=== PATIENT | male | born 1955 | race Caucasian/White ===

== ENCOUNTER 2018-06-25 10:48 | Emergency (ER) | payer OTHER ==
[~2018-06-25] VITALS: Ht 180.3 cm; Wt 88.5 kg
[2018-06-25 10:50] VITALS: BP_SYST 153
--- NOTE | 2018-06-25 11:02 | NUR ---
LANCE Alan at bedside examining patient.
--- NOTE | 2018-06-25 11:05 | NUR ---
Patient is awake, alert, and oriented x 4. Patient denies any pain or discomfort. No signs or symptoms of distress. Daughter at bedside.
[2018-06-25 11:42] LABS: ANION GAP 11 (5-15); CALCIUM 9.2 mg/dL (8.4-11.0); CHLORIDE 101 mmol/L (98-107); CREATININE 0.86 mg/dL (0.55-1.30); GLUCOSE 117 mg/dL (70-99); SODIUM SERUM 136 mmol/L (136-145); UREA NITROGEN, BLOOD 14 mg/dL (8-21)
[2018-06-25 11:50] LABS: ALANINE AMINOTRANSFERASE 29 U/L (12-78); ALBUMIN 3.5 g/dL (3.4-4.8); ASPARTATE AMINOTRANSFERASE 19 U/L (10-37); TOTAL BILIRUBIN 0.2 mg/dL (0.0-1.0)
[2018-06-25 11:54] LABS: GFR AFRICAN AMERICAN 116 mL/min (>90)
[2018-06-25 12:10] LABS: INR 0.9 (0.80-1.20); PROTHROMBIN TIME 9.4 SECS (9.5-12.5)
[2018-06-25 12:25] LABS: BILIRUBIN,URINE NEGATIVE (NEGATIVE); BLOOD, URINE NEGATIVE (NEGATIVE); CLARITY/URINE CLEAR (CLEAR); COLOR,URINE YELLOW (YELLOW); GLUCOSE,URINE NEGATIVE (NEGATIVE); KETONES,URINE NEGATIVE (NEGATIVE); LEUKOCYTE ESTERASE ,URINE NEGATIVE (NEGATIVE); NITRITE, URINE NEGATIVE (NEGATIVE); PH,URINE 6.5 (5.0-8.0); PROTEIN URINE NEGATIVE (NEGATIVE); UROBILINOGEN,URINE 0.2 (0.2-1.0)
--- NOTE | 2018-06-25 12:30 | NUR ---
Pt resting, pt denies dizziness or feeling faint.
[2018-06-25 12:38] LABS: BARBITURATE, URINE NEGATIVE (NEG <=200); BENZODIAZEPINE, URINE NEGATIVE (NEG <=150); CANNABINOID, URINE NEGATIVE (NEG <=50); COCAINE, URINE NEGATIVE (NEG <=150); METHAMPHETAMINES SCREEN,URINE NEGATIVE (NEG <=500); OPIATE, URINE NEGATIVE (NEG <=100); PHENCYCLIDINE SCREEN,URINE NEGATIVE (NEG <=25); UR TRICYCLIC ANTIDEPRESSANTS NEGATIVE (NEG <=300); URINE AMPHETAMINE NEGATIVE (NEG <=500); URINE METHADONE NEGATIVE (NEG <=200); URINE OXYCODONE SCREEN NEGATIVE (NEG <=100); URINE PROPOXYPHENE SCREEN NEGATIVE (NEG <=300)
[2018-06-25 12:39] LABS: HEMATOCRIT 35.1 % (36-54); HEMOGLOBIN 11.2 g/dL (14.0-18.0); MEAN CORPUSCULAR HEMOGLOBIN 25 pg (27-31); MEAN CORPUSCULAR HGB CONC 32 % (32-36); MEAN CORPUSCULAR VOLUME 80 fL (79.0-98.0); PLATELET COUNT (AUTO) 372 K/uL (130-430); RED BLOOD CELL COUNT(AUTO) 4.42 MIL/uL (4.2-6.2); RED CELL DISTRIBUTION WIDTH 17.5 % (9.0-15.0); WHITE BLOOD COUNT (AUTO) 9.1 K/uL (4.8-10.8)
[2018-06-25 12:40] LABS: BASOPHILS # (AUTO) 0.1 K/uL (0.0-0.2); BASOPHILS % (AUTO) 0.6 % (0.0-2.0); EOSINOPHILS # (AUTO) 0.1 K/uL (0.0-0.4); EOSINOPHILS % (AUTO) 1.5 % (0.0-4.0); LYMPHOCYTES # (AUTO) 0.6 K/uL (1.0-5.5); LYMPHOCYTES % (AUTO) 6.3 % (20.5-51.5); MONOCYTES # (AUTO) 0.7 K/uL (0.0-1.0); MONOCYTES % (AUTO) 7.8 % (1.7-9.3); NEUTROPHILS # (AUTO) 7.6 K/uL (1.8-7.7); NEUTROPHILS % (AUTO) 83.8 % (40.0-70.0)
[2018-06-25 13:38] VITALS: BP_SYST 146
--- NOTE | 2018-06-25 13:40 | NUR ---
Patient given written and verbal discharge instructions and verbalizes understanding. ER MD discussed with patient the results and treatment provided. Patient in stable condition. ID arm band removed. IV catheter removed intact and dressing applied, no active bleeding. No Rx given. Patient educated on pain management and to follow up with PMD. Pain Scale 0/10 . Opportunity for questions provided and answered. Medication side effect fact sheet provided.
== END 2018-06-25 13:38 | disposition home or self-care (01) ==
LOC: SED 10:48
DX: R55 Syncope and collapse (principal); D64.9 Anemia, unspecified; I10 Essential (primary) hypertension; F17.210 Nicotine dependence, cigarettes, uncomplicated
CPT/HCPCS: 36415; 70450-TC; 71045; 80053; 80307; 81003; 84484; 85025; 85610-TC; 93005; 99284

== ENCOUNTER 2018-11-20 17:12 | Inpatient (IN) | payer OTHER ==
[~2018-11-20] VITALS: Ht 177.8 cm; Wt 87.7 kg
[2018-11-20 17:20] VITALS: BP_SYST 140
[2018-11-20] MEDS ORDERED: NACL 0.9% 1,000 ML IV ONE (17:24)
[2018-11-20] MEDS ORDERED: METOPROLOL TARTRATE 5 MG/5 ML VIAL IVP ONE (17:30)
[2018-11-20] MEDS ORDERED: NITROGLYCERIN 0.4 MG TAB.SUBL SL ONE ×2 (17:30→17:31)
[2018-11-20] MEDS ORDERED: ASPIRIN 81 MG TAB.CHEW PO ONE (17:30)
[2018-11-20] MEDS ORDERED: MORPHINE 2 MG/ML INJ. SYRINGE IVP ONE (17:30)
[2018-11-20] MEDS ORDERED: ASPIRIN 325 MG TABLET ONE (17:31)
[2018-11-20 17:35] LABS: MEAN CORPUSCULAR HEMOGLOBIN 18 pg (27-31); MEAN CORPUSCULAR HGB CONC 30 % (32-36); MEAN CORPUSCULAR VOLUME 62 fL (79.0-98.0); PLATELET COUNT (AUTO) 407 K/uL (130-430); RED BLOOD CELL COUNT(AUTO) 2.89 MIL/uL (4.2-6.2); RED CELL DISTRIBUTION WIDTH 20.2 % (9.0-15.0); WHITE BLOOD COUNT (AUTO) 8.6 K/uL (4.8-10.8)
[2018-11-20 17:42] LABS: CALCIUM 8.1 mg/dL (8.4-11.0); CREATININE 0.77 mg/dL (0.55-1.30); POTASSIUM 4.2 mmol/L (3.5-5.1)
[2018-11-20 17:46] LABS: HEMOGLOBIN 5.3 g/dL (14.0-18.0)
[2018-11-20 17:51] LABS: ALBUMIN 3.3 g/dL (3.4-4.8); TOTAL BILIRUBIN 0.3 mg/dL (0.0-1.0)
[2018-11-20 17:55] LABS: BAND % (MANUAL) 0 % (0-6); BASOPHILS % (MANUAL) 0 % (0-2); EOSINOPHILS % (MANUAL) 4 % (0-7); LYMPHOCYTES % (MANUAL) 25 % (20-46); MONOCYTES % (MANUAL) 5 % (0-11)
[2018-11-20] MEDS ORDERED: IOHEXOL 100 ML IV ONE (18:20)
[2018-11-20 18:32] LABS: PROTHROMBIN TIME 10.3 SECS (9.5-12.5)
[2018-11-20 19:16] VITALS: BP_SYST 137
[2018-11-20] MEDS ORDERED: LIP40 PO (19:23)
[2018-11-20] MEDS ORDERED: CLOP300T2 PO (19:23)
[2018-11-20] MEDS ORDERED: LISI1TAB9 PO (19:23)
[2018-11-20] MEDS ORDERED: AMLO5TAB4 PO (19:23)
[2018-11-20] MEDS ORDERED: NITROGLYCERIN 0.4 MG TAB.SUBL SL PRN (19:45)
[2018-11-20 20:00] VITALS: BP_SYST 133
[2018-11-20 21:00] VITALS: BP_SYST 130
[2018-11-20] MEDS: ATORVASTATIN 20 MG TABLET PO SCH (21:23)
[2018-11-20 22:00] VITALS: BP_SYST 129
[2018-11-20 23:00] VITALS: BP_SYST 163
[2018-11-21] VITALS (26 sets, daily range): BP systolic 103–162
[2018-11-21] MEDS ORDERED: FUROSEMIDE 40 MG/4 ML VIAL IVP ONE (01:45)
[2018-11-21] MEDS ORDERED: LevALBUTEROL HCL 1.25 MG/0.5 ML *CONC.* VIAL.NEB (XOPENEX CONC.) INH PRN ×2 (02:00)
[2018-11-21] MEDS ORDERED: LevALBUTEROL HCL 1.25 MG/0.5 ML *CONC.* VIAL.NEB (XOPENEX CONC.) INH ONE (02:01)
[2018-11-21] MEDS ORDERED: FUROSEMIDE 40 MG/4 ML VIAL ONE (02:08)
[2018-11-21 03:48] LABS: HEMOGLOBIN 6.5 g/dL (14.0-18.0)
[2018-11-21 06:53] LABS: CREATININE 0.86 mg/dL (0.55-1.30)
[2018-11-21 06:59] LABS: TOTAL IRON BIND. CAPACITY 430 ug/dL (250-450)
[2018-11-21 07:06] LABS: HEMATOCRIT 23.4 % (36-54); MEAN CORPUSCULAR HEMOGLOBIN 20 pg (27-31); MEAN CORPUSCULAR HGB CONC 29 % (32-36); MEAN CORPUSCULAR VOLUME 70 fL (79.0-98.0); PLATELET COUNT (AUTO) 351 K/uL (130-430); RED BLOOD CELL COUNT(AUTO) 3.34 MIL/uL (4.2-6.2); RED CELL DISTRIBUTION WIDTH 24.8 % (9.0-15.0)
[2018-11-21] MEDS: LISINOPRIL 10 MG TABLET (PRINIVIL) PO SCH (08:09)
[2018-11-21] MEDS: amLODIPine BESYLATE 5 MG TABLET PO SCH (08:10)
[2018-11-21] MEDS: HYDROCHLOROTHIAZIDE 12.5 MG CAPSULE (HCTZ) PO SCH (08:10)
[2018-11-21 08:21] LABS: HEMOGLOBIN 6.8 g/dL (14.0-18.0)
[2018-11-21 08:22] LABS: WHITE BLOOD COUNT (AUTO) 22.9 K/uL (4.8-10.8)
[2018-11-21] MEDS ORDERED: NACL 0.9% 1,000 ML IV SCH (09:30)
[2018-11-21] MEDS ORDERED: PANTOPRAZOLE SODIUM 40 MG/VIAL (PROTONIX) IVP SCH (09:45)
[2018-11-21] MEDS ORDERED: PANTOPRAZOLE SODIUM 40 MG/VIAL (PROTONIX) IVP ONE (09:45)
[2018-11-21] MEDS ORDERED: methylPREDNISolone SOD SUCC 40 MG/ML VIAL IVP ONE (10:00)
[2018-11-21] MEDS ORDERED: FUROSEMIDE 20 MG/2 ML VIAL IVP ONE ×2 (10:45→12:00)
[2018-11-21] MEDS ORDERED: DIPHENHYDRAMINE INJ 50 MG/ML VIAL IVP ONE (10:45)
[2018-11-21] MEDS: LevALBUTEROL HCL 1.25 MG/0.5 ML *CONC.* VIAL.NEB (XOPENEX CONC.) INH SCH ×4 (11:03→23:42)
[2018-11-21] MEDS: NICOTINE 2 MG PO PRN ×3 (12:57→20:57)
[2018-11-21 13:15] LABS: ATYPICAL LYMPHOCYTES % 0 % (0-0); BAND % (MANUAL) 3 % (0-6); BASOPHILS % (MANUAL) 0 % (0-2); EOSINOPHILS % (MANUAL) 0 % (0-7); LYMPHOCYTES % (MANUAL) 3 % (20-46); MONOCYTES % (MANUAL) 6 % (0-11)
[2018-11-21] MEDS ORDERED: DIPHENHYDRAMINE INJ 50 MG/ML VIAL ONE (14:45)
[2018-11-21] MEDS: methylPREDNISolone SOD SUCC 40 MG/ML VIAL IVP SCH ×2 (14:48→23:17)
[2018-11-21] MEDS: AZITHROMYCIN 500 MG in NS 250 ML IV SCH (17:25)
[2018-11-21] MEDS: FUROSEMIDE 20 MG/2 ML VIAL IVP SCH (17:31)
[2018-11-21 20:06] LABS: BASOPHILS # (AUTO) 0.2 K/uL (0.0-0.2); BASOPHILS % (AUTO) 1.3 % (0.0-2.0); HEMATOCRIT 26.4 % (36-54); HEMOGLOBIN 8.1 g/dL (14.0-18.0); LYMPHOCYTES # (AUTO) 0.3 K/uL (1.0-5.5); LYMPHOCYTES % (AUTO) 2.3 % (20.5-51.5); MEAN CORPUSCULAR HEMOGLOBIN 22 pg (27-31); MEAN CORPUSCULAR HGB CONC 31 % (32-36); MEAN CORPUSCULAR VOLUME 71 fL (79.0-98.0); MONOCYTES # (AUTO) 0.2 K/uL (0.0-1.0); MONOCYTES % (AUTO) 1.8 % (1.7-9.3); NEUTROPHILS # (AUTO) 12.7 K/uL (1.8-7.7); NEUTROPHILS % (AUTO) 94.6 % (40.0-70.0); PLATELET COUNT (AUTO) 315 K/uL (130-430); RED CELL DISTRIBUTION WIDTH 27.1 % (9.0-15.0); WHITE BLOOD COUNT (AUTO) 13.5 K/uL (4.8-10.8)
[2018-11-21 20:47] LABS: ERYTHROCYTE SEDIMENTATION RATE 14 MM/HR (0-15)
[2018-11-21] MEDS: ATORVASTATIN 20 MG TABLET PO SCH (20:53)
[2018-11-21] MEDS: PANTOPRAZOLE SODIUM 40 MG/VIAL (PROTONIX) IVP SCH (20:53)
[2018-11-21] MEDS: CARVEDILOL 6.25 MG TABLET (COREG) PO SCH (20:54)
[2018-11-21] MEDS ORDERED: methylPREDNISolone SOD SUCC 40 MG/ML VIAL IVP SCH (21:00)
[2018-11-22] VITALS (20 sets, daily range): BP systolic 96–162
[2018-11-22] MEDS: LevALBUTEROL HCL 1.25 MG/0.5 ML *CONC.* VIAL.NEB (XOPENEX CONC.) INH SCH ×4 (03:50→15:15)
[2018-11-22 05:03] LABS: BASOPHILS # (AUTO) 0.1 K/uL (0.0-0.2); BASOPHILS % (AUTO) 0.4 % (0.0-2.0); HEMATOCRIT 26.9 % (36-54); HEMOGLOBIN 8.2 g/dL (14.0-18.0); LYMPHOCYTES # (AUTO) 0.3 K/uL (1.0-5.5); LYMPHOCYTES % (AUTO) 1.7 % (20.5-51.5); MEAN CORPUSCULAR HEMOGLOBIN 22 pg (27-31); MEAN CORPUSCULAR HGB CONC 30 % (32-36); MEAN CORPUSCULAR VOLUME 72 fL (79.0-98.0); MONOCYTES # (AUTO) 0.4 K/uL (0.0-1.0); MONOCYTES % (AUTO) 2.3 % (1.7-9.3); NEUTROPHILS # (AUTO) 14.7 K/uL (1.8-7.7); NEUTROPHILS % (AUTO) 95.6 % (40.0-70.0); PLATELET COUNT (AUTO) 300 K/uL (130-430); RED BLOOD CELL COUNT(AUTO) 3.75 MIL/uL (4.2-6.2); RED CELL DISTRIBUTION WIDTH 27.6 % (9.0-15.0); WHITE BLOOD COUNT (AUTO) 15.4 K/uL (4.8-10.8)
[2018-11-22 05:56] LABS: CALCIUM 8.4 mg/dL (8.4-11.0); CREATININE 0.93 mg/dL (0.55-1.30); POTASSIUM 3.4 mmol/L (3.5-5.1)
[2018-11-22 05:57] LABS: ALBUMIN 2.9 g/dL (3.4-4.8); TOTAL BILIRUBIN 0.5 mg/dL (0.0-1.0)
[2018-11-22 05:58] LABS: THYROID STIMULATING HORMONE 0.22 uIu/mL (0.34-4.82)
[2018-11-22] MEDS: methylPREDNISolone SOD SUCC 40 MG/ML VIAL IVP SCH (06:26)
[2018-11-22] MEDS: FUROSEMIDE 20 MG/2 ML VIAL IVP SCH ×2 (06:27→18:15)
[2018-11-22] MEDS: NICOTINE 2 MG PO PRN ×3 (06:28→15:32)
[2018-11-22] MEDS: PANTOPRAZOLE SODIUM 40 MG/VIAL (PROTONIX) IVP SCH (08:56)
[2018-11-22] MEDS: LISINOPRIL 10 MG TABLET (PRINIVIL) PO SCH (08:56)
[2018-11-22] MEDS: CARVEDILOL 6.25 MG TABLET (COREG) PO SCH (08:57)
[2018-11-22] MEDS: amLODIPine BESYLATE 5 MG TABLET PO SCH (08:58)
[2018-11-22] MEDS: HYDROCHLOROTHIAZIDE 12.5 MG CAPSULE (HCTZ) PO SCH (08:58)
[2018-11-22] MEDS ORDERED: NICOTINE 7 MG/24 HR PATCH.TD24 TD SCH (09:00)
[2018-11-22] MEDS ORDERED: POTASSIUM CHLORIDE 20 MEQ TAB.PRT.SR PO ONE (10:00)
[2018-11-22] MEDS: AZITHROMYCIN 500 MG in NS 250 ML IV SCH (17:39)
[2018-11-22] MEDS ORDERED: methylPREDNISolone SOD SUCC 40 MG/ML VIAL IVP SCH (21:00)
[2018-11-24 03:15] LABS: FOLATE (FOLIC ACID) 12.5 ng/mL (>3.0)
[2018-11-24 20:21] LABS: MYCOPLASMA PNEUMONIAE IgM <770 U/mL (0-769)
[2018-11-26 12:00] LABS: CHLAMYDIA AB, IgG 1.96 ratio (0.00-0.90)
== END 2018-11-22 20:00 | disposition short-term general hospital (02) | DRG 377 ==
LOC: SED 17:12 → SIC 18:34 → STU 11-22 18:02
PROVIDERS: ADMIT Family Medicine; ATTEND Family Medicine
PROC: 30233N1 Transfusion of Nonautologous Red Blood Cells into Peripheral Vein, Percutaneous Approach (ICD-10-PCS; principal; 2018-11-20)
PROC: 5A09357 Assistance with Respiratory Ventilation, Less than 24 Consecutive Hours, Continuous Positive Airway Pressure (ICD-10-PCS; 2018-11-21)
DX: K92.2 Gastrointestinal hemorrhage, unspecified (principal); J18.9 Pneumonia, unspecified organism; I24.8 Other forms of acute ischemic heart disease; E87.1 Hypo-osmolality and hyponatremia; I25.110 Atherosclerotic heart disease of native coronary artery with unstable angina pectoris; I42.0 Dilated cardiomyopathy; D50.9 Iron deficiency anemia, unspecified; E78.5 Hyperlipidemia, unspecified; I11.0 Hypertensive heart disease with heart failure; I73.9 Peripheral vascular disease, unspecified; I50.9 Heart failure, unspecified; J44.9 Chronic obstructive pulmonary disease, unspecified; I65.29 Occlusion and stenosis of unspecified carotid artery; F17.210 Nicotine dependence, cigarettes, uncomplicated; Z79.82 Long term (current) use of aspirin; Z86.73 Personal history of transient ischemic attack (TIA), and cerebral infarction without residual deficits; Z79.899 Other long term (current) drug therapy; Z82.49 Family history of ischemic heart disease and other diseases of the circulatory system
CPT/HCPCS: 36415; 36600; 71045; 71260-TC; 80048; 80053; 80061; 82272; 82550-TC; 82607; 82728; 82746; 82803-TC; 83540-TC; 83550-TC; 83880; 84443-TC; 84484; 85007; 85018-TC; 85025; 85027; 85610-TC; 85651-TC; 85730-TC; 86631; 86738; 86886; 86900; 86901; 86920; 87040-TC; 87081; 93005; 93306; 94640; 94660; 96361; 96374; 96375; 99291; C9113; J0456; J0696; J1030; J1200; J1940; J2270; J3490; J7030; J7040; J7050; J7060; J7612; P9021; Q9967

== ENCOUNTER 2022-09-05 15:16 | Emergency (ER) | payer OTHER ==
[~2022-09-05] VITALS: Ht 180.3 cm; Wt 95.3 kg
[~2022-09-05 15:16] MED LIST: AMLO5TAB4 PO; CLOP300T2 PO; LIP40 PO; LISI1TAB53 PO
--- NOTE | 2022-09-05 15:20 | NUR ---
PT BIBA AWAKE AND ALERT AOX4, NO SOB NO DISTRESS. PT WAS AT HOME AND HAD 3 SEIZURE EACH LASTING ONE MIN. PT WAS SITTING IN A CHAIR AND NO TRAUMA OCCURED. PT DENIES PAIN. PT HAS NO PREVIOUS HX OF SEIZURE. PT HAS HX OF TIA, HTN.
--- NOTE | 2022-09-05 15:24 | NUR ---
MD DR CISNEROS AT BEDSIDE
[2022-09-05 15:53] LABS: BASOPHILS # (AUTO) 0.1 K/uL (0.0-0.2); EOSINOPHILS # (AUTO) 0.2 K/uL (0.0-0.4); EOSINOPHILS % (AUTO) 2.2 % (0.0-4.0); HEMATOCRIT 36.4 % (36-54); HEMOGLOBIN 11.5 g/dL (14.0-18.0); LYMPHOCYTES # (AUTO) 0.9 K/uL (1.0-5.5); MEAN CORPUSCULAR HEMOGLOBIN 25 pg (27-31); MEAN CORPUSCULAR HGB CONC 32 % (32-36); MEAN CORPUSCULAR VOLUME 79 fL (79.0-98.0); MONOCYTES # (AUTO) 0.7 K/uL (0.0-1.0); MONOCYTES % (AUTO) 8.3 % (1.7-9.3); NEUTROPHILS # (AUTO) 6.4 K/uL (1.8-7.7); NEUTROPHILS % (AUTO) 77.5 % (40.0-70.0); PLATELET COUNT (AUTO) 295 K/uL (130-430); RED BLOOD CELL COUNT(AUTO) 4.59 MIL/uL (4.2-6.2); RED CELL DISTRIBUTION WIDTH 20.1 % (9.0-15.0); WHITE BLOOD COUNT (AUTO) 8.2 K/uL (4.8-10.8)
[2022-09-05 16:00] VITALS: BP_SYST 110
[2022-09-05 16:33] LABS: INR 1.1 (0.80-1.20); PROTHROMBIN TIME 10.9 SECS (9.5-12.5)
[2022-09-05 16:54] LABS: ANION GAP 8 (5-15); CALCIUM 8.4 mg/dL (8.4-11.0); CHLORIDE 99 mmol/L (98-107); CREATININE 0.86 mg/dL (0.55-1.30); GFR AFRICAN AMERICAN 114 mL/min (>90); GLUCOSE 102 mg/dL (70-99); UREA NITROGEN, BLOOD 14 mg/dL (8-21)
[2022-09-05 17:01] LABS: ALANINE AMINOTRANSFERASE 29 U/L (12-78); ALBUMIN 3.2 g/dL (3.4-4.8); ASPARTATE AMINOTRANSFERASE 17 U/L (10-37); TOTAL BILIRUBIN 0.3 mg/dL (0.0-1.0)
[2022-09-05] MEDS ORDERED: iohexoL 350 mgI/mL, 100 ML INFUS..BTL IV ONE (17:22)
[2022-09-05 17:51] LABS: BILIRUBIN,URINE NEGATIVE (NEGATIVE); BLOOD, URINE NEGATIVE (NEGATIVE); CLARITY/URINE CLEAR (CLEAR); COLOR,URINE YELLOW (YELLOW); GLUCOSE,URINE NEGATIVE (NEGATIVE); KETONES,URINE NEGATIVE (NEGATIVE); LEUKOCYTE ESTERASE ,URINE NEGATIVE (NEGATIVE); NITRITE, URINE NEGATIVE (NEGATIVE); PH,URINE 7.5 (5.0-8.0); PROTEIN URINE TRACE (NEGATIVE); UROBILINOGEN,URINE 0.2 (0.2-1.0)
[2022-09-05 18:22] LABS: BARBITURATE, URINE NEGATIVE (NEG <=200); BENZODIAZEPINE, URINE NEGATIVE (NEG <=150); CANNABINOID, URINE NEGATIVE (NEG <=50); COCAINE, URINE NEGATIVE (NEG <=150); METHAMPHETAMINES SCREEN,URINE NEGATIVE (NEG <=500); OPIATE, URINE NEGATIVE (NEG <=100); PHENCYCLIDINE SCREEN,URINE NEGATIVE (NEG <=25); URINE AMPHETAMINE NEGATIVE (NEG <=500); URINE METHADONE NEGATIVE (NEG <=200); URINE OXYCODONE SCREEN NEGATIVE (NEG <=100); URINE PROPOXYPHENE SCREEN NEGATIVE (NEG <=300)
[2022-09-05 18:23] LABS: UR TRICYCLIC ANTIDEPRESSANTS NEGATIVE (NEG <=300)
[2022-09-05 18:30] LABS: BACTERIA,URINE RARE /HPF (None Seen); RBC,URINE NONE SEEN /HPF (0-3); WBC,URINE 0-3 /HPF (0-3)
[2022-09-05 18:31] LABS: HYALINE CASTS, URINE 0-10 /LPF (None Seen); MUCUS,URINE 1+ /LPF (None Seen)
--- NOTE | 2022-09-05 18:50 | NUR ---
PT ON [facility] TALKING TO NUEROLOGIST
--- NOTE | 2022-09-05 19:11 | NUR ---
REPORT GIVEN TO LEX RN, PT STABLE.
[2022-09-05] MEDS ORDERED: LEVE1000 PO (19:12)
--- NOTE | 2022-09-05 19:27 | NUR ---
Patient given written and verbal discharge instructions and verbalizes understanding. ER MD discussed with patient the results and treatment provided. Patient in stable condition. ID arm band removed. IV catheter removed intact and dressing applied, no active bleeding. Rx of celeste given. Patient educated on pain management and to follow up with PMD. Pain Scale . Opportunity for questions provided and answered. Medication side effect fact sheet provided.
[2022-09-05 19:29] VITALS: BP_SYST 132
== END 2022-09-05 19:20 | disposition home or self-care (01) ==
LOC: SED 15:16
DX: R56.9 Unspecified convulsions (principal); R41.82 Altered mental status, unspecified; R42 Dizziness and giddiness; E78.5 Hyperlipidemia, unspecified; I10 Essential (primary) hypertension; Z79.899 Other long term (current) drug therapy
CPT/HCPCS: 99285; 70496; 80307; 80053; 85025; 85610; 84484; 36415; 70498; 81000; 70450; 76376; Q9967